=== PATIENT | female | born 1980 | race Caucasian/White ===

== ENCOUNTER 2016-11-14 03:44 | Emergency (ER) | payer OTHER | END 2016-11-14 05:55 | disposition home or self-care (01) | LOC: ER1 03:44 | DX: J10.1 Influenza due to other identified influenza virus with other respiratory manifestations (principal) | CPT/HCPCS: 71020; 87081; 87880; 99283; J0696; J7030; J7050 ==

== ENCOUNTER 2021-03-24 20:55 | Emergency (ER) | payer OTHER ==
[~2021-03-24 20:55] MED LIST: Magic Mouth Wash PO
[2021-03-24 21:58] LABS: HEMOGLOBIN 12.8 gm/dl (12.3-15.3); RED BLOOD COUNT 4.05 M/UL (4.00-5.10); WHITE BLOOD COUNT 8.4 K/UL (4.5-11.0)
[2021-03-24 22:38] LABS: BUN/CREATININE RATIO 10 (0-10)
[2021-03-24] MEDS ORDERED: VIBRAMYCIN 100100 MG PO (23:01)
== END 2021-03-24 23:20 | disposition home or self-care (01) ==
LOC: ER1 20:55
PROVIDERS: Student in an Organized Health Care Education/Training Program
DX: U07.1 COVID-19 (principal); J45.909 Unspecified asthma, uncomplicated
CPT/HCPCS: 80053; 82550; 82553; 83874; 84484; 84702; 85025; 93005; 99283; J7120